=== PATIENT | male | born 1970 | race Caucasian/White ===

== ENCOUNTER → 2021-09-28 00:10 | Outpatient (CLI) | payer OTHER, SELFPAY ==
[2021-09-28 20:23] LABS: SARS-CoV-2 RNA PCR Negative
== END ==
PROVIDERS: PCP Family Medicine; Visit Provider Plastic Surgery
DX: Z01.812 Encounter for preprocedural laboratory examination (principal); Z20.822 Contact with and (suspected) exposure to COVID-19
CPT/HCPCS: C9803; U0003; U0005

== ENCOUNTER 2021-10-02 01:02 | Day surgery (SDC) | payer OTHER, SELFPAY ==
--- NOTE | 2021-09-27 14:16 | PC.NURSE ---
Report to the Outpatient Waiting Room, entrance under the green pavilion located off [facility], at time __0800 on date 10/02/21 . OR Time: ___1000 . - You and your visitor will be asked a series of questions to screen for COVID 19 for your protection. - A mask is required within the hospital. - Only one visitor is allowed at this time. Patient visitors will be guided where to wait when not with patient. Preoperative COVID Testing Requirements: No COVID Test needed if: (proof is required; if not received patient will have Rapid Test prior to entry) - Patient has received COVID Vaccine at least 14 days prior to procedure date or - Patient has positive COVID test result within last 90 days of surgery date. COVID Test needed if above criteria is not met If not COVID vaccinated a COVID test must be conducted within 72 hours of surgery and patient is asked to isolate self from time of testing until procedure. You will go to the [facility] for your COVID testing. The [facility] site is located at the corner of [address] [facility]. You will only be called if COVID results are positive and your surgeon may reschedule your elective surgery date. Patients may have clear liquids (water, carbonated beverages, clear teas, apple juice) until 3 hours prior to surgery with a maximum of 20 ounces. - No food from midnight until time of surgery - Infants may have breast milk until 4 hours before surgery, formula 6 hours prior to surgery. - Children will be allowed to drink immediately following surgery. If applicable, please bring a bottle or sippy cup to assist with drinking. Juice, water, soda, and popsicles are readily available. For infants on formula, please bring formula the day of surgery. Pacifiers are allowed. Take the following medications with a SIP of water the morning of surgery: _N/A Medications to discontinue per physician _MULTIVIT Date to take last dose____09/29/21 Please no make-up, nail canadian, hairspray, perfume, deodorant, or body powder the day of surgery. No jewelry (including any body piercings) or valuables the day of surgery, leave them at home. Please take a shower or bath the night before, or the morning of, surgery with an antibacterial soap. Wear comfortable, loose fitting clothing. Children are encouraged to wear pajamas. - Jewelry must be removed prior to entering the operating room. Rings and piercings that are not removed may be cut off. - The hospital will not accept responsibility for valuables. - Please leave all valuables, including medications, at home the day of surgery. If you are going home after surgery, a licensed garbage truck driver must drive you home. - NO public transportation without another adult. - We recommend that an adult stay with you for 24 hours following discharge. - We also recommend that you do not drive, make important decision, drink alcoholic beverages, or take any drugs that were not prescribed by your health care provider for at least 24 hours after your discharge time. For Pediatric surgeries, we recommend two adults accompany the child home (only one inside the building at this time). Follow any additional instructions given to you from your surgeon. Telephone instructions given to _CAS and asked if any additional questions and then verbalized understanding. Patient advised to call surgeon office or pre surgery nurse liaison [phone] if any additional questions.
[2021-10-02] VITALS (9 sets, daily range): BP systolic 112–140; BP diastolic 67–85; PULSE 79–118; RESP 14–20; TEMP 36.5–36.6; O2SAT 93–100
--- NOTE | 2021-10-02 07:24 | WPDHPUPDATE1 ---
History and Physical Update Update Date/Time: 10/02/21 07:24 History and Physical has been reviewed, including an updated exam of the patient. There are NO changes in the patient's condition. Risks, benefits, and alternatives have been discussed and questions answered. Patient agrees to proceed with procedure.
[2021-10-02] MEDS: LACTATED RINGERS 1,000 ML 30 ML IV CONT ×2 (08:22→13:00)
--- NOTE | 2021-10-02 09:22 | WPDANESEPPF ---
Anes - Initial Pre Proc Eval Procedure: Operation Date: 10/02/21 10:00 Proposed Procedures p Excision of Neoplasm of Unspecified Behavior Right Nasal Sidewall with Frozen Section and Local Tissue Transfer or Full Thickness Skin Graft - Ignacio Delvalle MD Date/Time: 10/02/21 09:22 Surgeon: Ignacio Delvalle MD Pre Op Diagnosis: Neoplasm of unspecified behavior rt nasal side wal Patient Data Age: 50 Gender: M Height: 1.63 m Weight: 79.4 kg Last Vital Signs Temp 36.5 C 10/02/21 08:03 Pulse 79 10/02/21 08:03 Resp 18 10/02/21 08:03 BP 140/82 10/02/21 08:03 Pulse Ox 100 10/02/21 08:03 Allergies Allergy/AdvReac Type Severity Reaction Status Date / Time Penicillins Allergy Mild Unknown Verified 10/02/21 07:57 Home Medications Medication Instructions Recorded Confirmed Type multivit with min-folic acid 1 tablet PO DAILY 09/27/21 10/02/21 History [Adult One Daily Multivitamin] Patient hx anesthesia problems: none Family hx anesthesia problems: none Results Review: All pre-operative results and documents have been reviewed as part of the pre-operative evaluation. [facility] Past Medical History Medical History JONI (obstructive sleep apnea) Social History Social History Smoking packs per day: 1 Smoking cigarettes per day: 20.0 Years smoked: 40 Smoking pack-years: 40.00 Smoking status: Current every day smoker Tobacco type: cigarettes Alcohol intake: former Substance use: current Substance use type: marijuana Last use: 09/14/21 Living arrangements: with family Gender identity (if verbalized by the patient): Male Sexual Orientation (if Verbalized by the Patient): Straight or Heterosexual Spiritual care concerns: No Anes - Eval Final PreProcedure Day of Procedure 10/02/21 09:22 Patient weight: overweight Heart: regular rate and rhythm Lungs: decreased breath sounds Airway: Mallampati scale class II Neurological: alert and oriented Last oral intake: >/= 8 hours ASA classification: III Emergent: no Anesthetic plan: proceed Anesthesia type and monitoring: general LMA and standard monitoring Results Review: All pre-operative results and documents have been reviewed as part of the pre-operative evaluation. Informed Consent: The patient's anesthetic plan and its attendant risks and benefits were discussed with the patient/family/POA. Questions were solicited and answers provided to the satisfaction of the patient/family/POA.
[2021-10-02] MEDS: ceFAZolin SODIUM 1 GM VIAL 2 GM IV PUSH (11:33)
[2021-10-02] MEDS: LIDO 1%/EPINEPHRINE/PF 1:200,000 30 ML VIAL INFILTRATE (12:10)
[2021-10-02] MEDS: BACITRACIN OP OINT 3.5 GM TUBE 1 APPLIC RIGHT EYE (12:12)
--- NOTE | 2021-10-02 18:21 | P.OP_ITS ---
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 He was then taken to the operating room where he was placed supine on the operating table. A time-out was held and confirmed. He was given general anesthesia and the entire face and neck and upper chest were prepped and draped in usual fashion. The site was carefully marked under bright lights with loupe magnification. This area was widely infiltrated with 1% lidocaine with epinephrine. About 5 minutes was allowed for hemostatic effect. The incision was carefully excised as marked in the specimen taken from the subcutaneous layer for frozen section. The most nasal aspect had been designated 12:00 o'clock and a suture was placed there, the 6:00 o'clock point was as well marked with a suture with 2 tails. The pathologist informed us that the 12-6 o'clock margin was positive there was some narrowed deep margin positive in that region and the 9-11 o'clock margin was positive. We undertook re-excision of approximately 2 and half to 3 mm strips from those areas again marking the new margins at 11:00 a.m. and 3:00 a.m. with suture for orientation to the pathologist. The specimen from the 12-6 margin was taken deeply into the subcutaneous tissue and superficial muscle with intention and clearing any residual deep margin along that aspect. . The report pathology was that all new margins were negative for tumor. A template of this area was made on suture pack for oil. Thought was given to designing a forehead flap with the intention to diminish contraction that might affect the lower lid. Our incision line came within a mm of the caruncle and extended widely over the medial 3rd of the thin lower lid skin. The dimensions of the wound at that point was 4- 1/2 by 2-1/2 cm. The fact that no significant volume of tissue had been resected beneath the skin suggested that the bulk of a flap was probably not indicated. the template was used to transfer the shape of the wound to the right upper neck just behind the ear. A full-thickness graft was harvested from that site. The donor site was undermined and closed with intradermal 3-0 Vicryl with glue applied to the surface. The graft was carefully defatted tailoring it to sit against the eyelid near the caruncle and over thicker skin along side the nose and upper cheek. The graft was inset with 5 0 nylon and 5 0 fast-absorbing gut. Quilting sutures were placed across the mid portion helping to seat the graft . An appropriate bandage with some Steri-Strips was used to cover the graft. Bacitracin ophthalmic ointment had been applied to the sutured graft. The patient was transferred to the recovery room in stable condition. 2 g of Ancef were given intraoperatively. Estimated Blood Loss 15 Drains No Packing No Pathology yes Complications No immediate complications Condition stable Disposition same day
== END 2021-10-02 14:45 | disposition home or self-care (01) ==
PROVIDERS: PCP Family Medicine; Visit Provider Plastic Surgery
PROC: (CPT 11646; principal; 2021-10-02 10:00)
DX: C44.311 Basal cell carcinoma of skin of nose (principal); G47.33 Obstructive sleep apnea (adult) (pediatric); F17.210 Nicotine dependence, cigarettes, uncomplicated; F12.90 Cannabis use, unspecified, uncomplicated
CPT/HCPCS: 11646; 15260; 88305; 88331; 88332; A9270; J0690; J1100; J1170; J2250; J2370; J2405; J2704; J3010; J7120